=== PATIENT | male | born 1965 | race Caucasian/White ===

== ENCOUNTER 2017-03-24 22:42 | Emergency (ER) | payer OTHER ==
--- NOTE | 2017-03-24 23:08 | ERPHSYRPT ---
- History of Present Illness Time Seen by Provider: 03/24/17 23:03 Source: patient, family Exam Limitations: no limitations Physician History: The patient is a 51-year-old male with his mother who is a past medical history of cervical fracture with now left-sided lower extremity weakness. He has to intermittently self catheter. Today he tried to self catheter but was unable to pass a catheter. He has severe suprapubic discomfort and request to be catheterized for relief. Timing/Duration: hour(s) (6) Activites at Onset: none Quality: fullness Onset Location: suprapubic Pain Radiation: none Severity of Pain-Max: severe Severity of Pain-Current: severe Modifying Factors: Improves With: nothing Associated Symptoms: denies symptoms Prior abdominal problems: none Sexual intercourse history: non-contributory Allergies/Adverse Reactions: No Known Drug Allergies Allergy (Unverified 06/12/15 07:53) Home Medications: Tramadol HCl 50 mg [Ultram 50 mg] 2 tab PO Q4H PRN PRN 06/12/15 [History] - Past Medical History Pertinent Past Medical History: Yes Musculoskeletal History: Other (left leg hemiparesis secondary to back/leg injury in the past,uses cane with severe limp) Other Medical History: UNKNOWN AT THIS TIME, PATIENT CONFUSED - Past Surgical History Other Surgical History: UNKNOWN AT THIS TIME, PATIENT CONFUSED - Social History Smoking Status: Current every day smoker Exposure to second hand smoke: Yes Drug Use: methamphetamines Patient Lives Alone: (UNKNOWN) - Review of Systems Constitutional: No Fever, No Chills Eyes: No Symptoms Ears, Nose, & Throat: No Symptoms Respiratory: No Cough, No Dyspnea Cardiac: No Chest Pain, No Edema, No Syncope Abdominal/Gastrointestinal: No Abdominal Pain, No Nausea, No Vomiting, No Diarrhea Genitourinary Symptoms: Urinary Retention Musculoskeletal: No Back Pain, No Neck Pain Skin: No Rash Neurological: No Dizziness, No Focal Weakness, No Sensory Changes Psychological: No Symptoms Endocrine: No Symptoms Hematologic/Lymphatic: No Symptoms Immunological/Allergic: No Symptoms All Other Systems: Reviewed and Negative - Physical Exam General Appearance: moderate distress Eye Exam: PERRL/EOMI Ears, Nose, Throat Exam: pharynx normal, moist mucous membranes Neck Exam: normal inspection, supple Respiratory Exam: normal breath sounds, lungs clear Cardiovascular Exam: regular rate/rhythm, No edema Gastrointestinal/Abdomen Exam: tenderness, distention Rectal Exam: not done Back Exam: normal inspection, No CVA tenderness Extremity Exam: normal inspection, normal range of motion, No pedal edema Neurologic Exam: alert, oriented x 3, cooperative, sensation nml, No motor deficits Skin Exam: normal color, warm, dry, No rash SpO2 Interpretation: normal - Progress Progress: improved Progress Note: 03/24/17 23:06 "An in and out catheter was performed with a 16 [place] coud with excellent results. Counseled pt/family regarding: diagnosis - Departure Time of Disposition: 23:07 Departure Disposition: Home Clinical Impression: Urinary retention Condition: Stable Critical Care Time: No Additional Instructions: You had urinary retention that was temporarily relieved with a 16 [place] coud catheter. You have been given a prescription for 16 [place] coud catheters for home use. Follow-up as needed.
[2017-03-24 23:27] VITALS: BP 102/65; PULSE 84; O2SAT 94
== END 2017-03-24 23:26 | disposition home or self-care (01) ==
LOC: ED 22:42
DX: R33.9 Retention of urine, unspecified (principal)
CPT/HCPCS: 51701; 99282

== ENCOUNTER 2023-10-23 12:50 | Emergency (ER) | payer OTHER ==
[2023-10-23 12:58] VITALS: TEMP 98.5; O2SAT 100
[2023-10-23] MEDS ORDERED: BABY ASPIRIN 81 MG CHEW PO ONE (13:08)
--- NOTE | 2023-10-23 13:08 | ERPHSYRPT ---
- History of Present Illness Time Seen by Provider: 10/23/23 13:08 Historian: patient Exam Limitations: no limitations Patient Subjective Stated Complaint: PT states "I have had chest pain since last night. I broke my neck awhile ago and I walk with a cane and I have left side weakness all the time and it might be acid reflux, I am not sure." Triage Nursing Assessment: Pt presented alert and oriented X 3, skin pwd. Pt ambulates with a cane and a hunched over slow gait. pt able to speak in clear full sentences. Pt resting comfortably on the bed. Physician History: This is a 58-year-old white male patient who began having some chest pain described as burning sharpness that began last evening. He thought it was more of acid reflux. However it persisted. It improved this morning and now, in the emergency department, he has no complaints of chest pain. He is not short of breath. He has had no fever. He denies cough. He has no abdominal pain. He has no nausea vomiting symptoms. Patient did not take any aspirin today. He is not on any anticoagulation therapy. He occasionally uses methamphetamines. P sg does not smoke or chew tobacco. He does not take daily medications. Timing/Duration: yesterday Quality: burning, sharpness Location: substernal, central Chest Pain Radiation: no radiation Severity of Pain-Max: mild (To moderate) Severity of Pain-Current: none Modifying Factors: Improves With: nothing Associated Symptoms: denies symptoms Nitro Today/Relief: no nitro taken today Aspirin Treatment Today: no aspirin today Allergies/Adverse Reactions: bee venom protein (honey bee) Allergy (Severe, Verified 10/23/23 12:58) Swelling Home Medications: No Reportable Medications [No Reported Medications] 10/23/23 [History] Hx Tetanus, Diphtheria Vaccination/Date Given: No Hx Influenza Vaccination/Date Given: No Hx Pneumococcal Vaccination/Date Given: No Immunizations Up to Date: No Travel Risk - International Travel Have you traveled outside of the country in past 3 weeks: No - Coronavirus Screening Are you exhibiting any of the following symptoms?: No Close contact with a COVID-19 positive Pt in past 14-21 Days: No - Vaccine Status Have you recieved a Covid-19 vaccination: No - Review of Systems Constitutional: No Symptoms Eyes: No Symptoms Ears, Nose, & Throat: No Symptoms Respiratory: No Symptoms Cardiac: No Symptoms Abdominal/Gastrointestinal: No Symptoms Genitourinary Symptoms: No Symptoms Musculoskeletal: No Symptoms Skin: No Symptoms Neurological: No Symptoms Psychological: No Symptoms Endocrine: No Symptoms Hematologic/Lymphatic: No Symptoms Immunological/Allergic: No Symptoms All Other Systems: Reviewed and Negative - Past Medical History Pertinent Past Medical History: Yes Neurological History: Other ENT History: Cataracts Cardiac History: No Pertinent History Respiratory History: No Pertinent History Endocrine Medical History: No Pertinent History Musculoskeletal History: Other GI Medical History: GERD History: No Pertinent History Psycho-Social History: No Pertinent History Male Reproductive Disorders: No Pertinent History Other Medical History: broken neck. walks with cane, left side weakness - Past Surgical History Past Surgical History: Yes Other Surgical History: jaw surgery - Social History Smoking Status: Never smoker Exposure to second hand smoke: Yes Drug Use: methamphetamines Patient Lives Alone: Yes - Nursing Vital Signs Nursing Vital Signs: Initial Vital Signs Temperature 98.5 F 10/23/23 12:50 Pulse Rate 98 H 10/23/23 12:50 Respiratory Rate 20 10/23/23 12:50 Blood Pressure 155/94 10/23/23 12:50 O2 Sat by Pulse Oximetry 100 10/23/23 12:50 Pain Scale Pain Intensity 4 - Physical Exam General Appearance: no apparent distress, alert, thin Eye Exam: PERRL/EOMI, eyes nml inspection Ears, Nose, Throat Exam: normal ENT inspection, moist mucous membranes Neck Exam: normal inspection, non-tender, supple, full range of motion Respiratory Exam: normal breath sounds, lungs clear, airway intact, No chest tenderness, No respiratory distress Cardiovascular Exam: regular rate/rhythm, normal heart sounds, normal peripheral pulses Gastrointestinal/Abdomen Exam: soft, normal bowel sounds, No tenderness Rectal Exam: not done Back Exam: normal inspection, normal range of motion, CVA tenderness Extremity Exam: normal inspection, normal range of motion, pelvis stable Neurologic Exam: alert, oriented x 3, cooperative, special events fundraiser II-XII nml as tested, normal mood/affect, nml cerebellar function, nml station & gait, sensation nml Skin Exam: normal color, warm, dry Lymphatic Exam: No adenopathy SpO2 Interpretation: normal SpO2: 100 O2 Delivery: Room Air - Course Nursing assessment & vital signs reviewed: Yes EKG Interpreted by Me: RATE (96), Sinus Rhythm, NORMAL AXIS, NORMAL INTERVALS, NORMAL QRS, NORMAL ST-T, Other (There is no evidence of any acute ischemic bryson ges on today's twelve-lead EKG) Ordered Tests: Active Orders 24 hr Category Date Time Status EKG-ER Only STAT Care 10/23/23 13:08 Completed IV Insertion STAT Care 10/23/23 13:08 Completed CHEST 1 VIEW (PORTABLE) Stat Exams 10/23/23 13:09 Completed CBC W DIFF Stat Lab 10/23/23 13:12 Completed CMP Stat Lab 10/23/23 13:12 Completed D-DIMER QUANTITATIVE Stat Lab 10/23/23 13:12 Completed NT PRO BNPII Stat Lab 10/23/23 13:12 Completed TROPONIN Q4H Lab 10/23/23 13:12 Completed TROPONIN Q4H Lab 10/23/23 17:15 Ordered TROPONIN Q4H Lab 10/23/23 21:15 Ordered Medication Summary Discontinued Medications Generic Name Dose Route Start Last Admin Trade Name Freq PRN Reason Stop Dose Admin Aspirin 324 mg 10/23/23 13:08 10/23/23 13:14 Aspirin 81 Mg Tab.Chew PO 10/23/23 13:09 324 mg STAT ONE Administration Aspirin Confirm 10/23/23 13:14 Aspirin 81 Mg Tab.Chew Administered 10/23/23 13:15 Dose 324 mg .ROUTE .STSkoovy-MED ONE Lab/Rad Data: Laboratory Result Diagrams 10/23/23 13:12 10/23/23 13:12 Laboratory Results 10/23/23 10/23/23 10/23/23 Range/Units 13:12 13:12 13:12 WBC (4.0-10.5) x10^3/uL RBC (4.1-5.6) x10^6/uL Hgb (12.5-18.0) g/dL Hct (42-50) % MCV (78-100) fL MCH (26-32) pg MCHC (32-36) g/dL RDW (11.5-14.0) % Plt Count (150-450) x10^3/uL MPV (7.5-11.0) fL Gran % (36.0-66.0) % Immature Gran % (Auto) (0.00-0.4) % Nucleat RBC Rel Count (0.00-0.1) % Eos # (Auto) (0-0.5) x10^3/uL Immature Gran # (Auto) (0.00-0.03) x10^3u/L Absolute Lymphs (auto) (1.0-4.6) x10^3/uL Absolute Monos (auto) (0.0-1.3) x10^3/uL Absolute Nucleated RBC (0.00-0.01) x10^3u/L Lymphocytes % (24.0-44.0) % Monocytes % (0.0-12.0) % Eosinophils % (0.00-5.0) % Basophils % (0.0-0.4) % Absolute Granulocytes (1.4-6.9) x10^3/uL Basophils # (0-0.4) x10^3/uL D-Dimer 0.33 (0.0-0.50) mg/L Sodium 136 L (137-145) mmol/L Potassium 3.8 (3.5-5.1) mmol/L Chloride 103 (98-107) mmol/L Carbon Dioxide 25 (22-30) mmol/L Anion Gap 12.0 (5-15) MEQ/L BUN 15 (9-20) mg/dL Creatinine 1.07 (0.66-1.25) mg/dL Estimated GFR 80.9 ML/MIN Glucose 110 H (74-106) mg/dL Calcium 8.6 (8.4-10.2) mg/dL Total Bilirubin 0.30 (0.2-1.3) mg/dL AST 19 (17-59) U/L ALT 15 (0-50) U/L Alkaline Phosphatase 108 (38-126) U/L Troponin I < 0.012 (0.000-0.034) ng/mL NT-Pro-B Natriuret Pep 105 (<300) pg/mL Serum Total Protein 6.6 (6.3-8.2) g/dL Albumin 3.8 (3.5-5.0) g/dL 10/23/23 Range/Units 13:12 WBC 6.2 (4.0-10.5) x10^3/uL RBC 4.70 (4.1-5.6) x10^6/uL Hgb 13.7 (12.5-18.0) g/dL Hct 41.5 L (42-50) % MCV 88.3 (78-100) fL MCH 29.1 (26-32) pg MCHC 33.0 (32-36) g/dL RDW 12.5 (11.5-14.0) % Plt Count 233 (150-450) x10^3/uL MPV 9.5 (7.5-11.0) fL Gran % 60.9 (36.0-66.0) % Immature Gran % (Auto) 0.2 (0.00-0.4) % Nucleat RBC Rel Count 0.0 (0.00-0.1) % Eos # (Auto) 0.25 (0-0.5) x10^3/uL Immature Gran # (Auto) 0.01 (0.00-0.03) x10^3u/L Absolute Lymphs (auto) 1.71 (1.0-4.6) x10^3/uL Absolute Monos (auto) 0.43 (0.0-1.3) x10^3/uL Absolute Nucleated RBC 0.00 (0.00-0.01) x10^3u/L Lymphocytes % 27.4 (24.0-44.0) % Monocytes % 6.9 (0.0-12.0) % Eosinophils % 4.0 (0.00-5.0) % Basophils % 0.6 (0.0-0.4) % Absolute Granulocytes 3.80 (1.4-6.9) x10^3/uL Basophils # 0.04 (0-0.4) x10^3/uL D-Dimer (0.0-0.50) mg/L Sodium (137-145) mmol/L Potassium (3.5-5.1) mmol/L Chloride (98-107) mmol/L Carbon Dioxide (22-30) mmol/L Anion Gap (5-15) MEQ/L BUN (9-20) mg/dL Creatinine (0.66-1.25) mg/dL Estimated GFR ML/MIN Glucose (74-106) mg/dL Calcium (8.4-10.2) mg/dL Total Bilirubin (0.2-1.3) mg/dL AST (17-59) U/L ALT (0-50) U/L Alkaline Phosphatase (38-126) U/L Troponin I (0.000-0.034) ng/mL NT-Pro-B Natriuret Pep (<300) pg/mL Serum Total Protein (6.3-8.2) g/dL Albumin (3.5-5.0) g/dL - Progress Progress: improved, re-examined Air Movement: good Progress Note: 10/23/23 14:06 This patient's medical issue is 1 of moderate complexity. The level complex in the workup performed is based on review the patient's past medical history, review of the patient's medication list, reviewed patient's drug allergy list, history present illness and physical findings on examination. Workup includes placement of an intravenous line, provide the patient with 4 baby aspirin, perform a twelve-lead EKG, troponin level, D-dimer level, CBC, CMP. We will also order a chest x-ray. 10/23/23 14:20 Chest x-ray was interpreted by the radiologist and I reviewed the impression. There is no evidence of any acute cardiopulmonary process. 10/23/23 14:20 I reviewed interpreted the patient's laboratory data results. There is no evidence of any acute or emergent findings. 10/23/23 15:11 I have a low suspicion for cardiac issue. His heart score is under 4. He has no chest pain at the time of discharge. Blood Culture(s) Obtained: No Antibiotics given: No Counseled pt/family regarding: lab results, diagnosis, need for follow-up, rad results Medical Desision Making - Diagnostic Testing Diagnostic test were ordered, analyzed, and reviewed by me: Yes Radiological Interpretation: Reviewed by me, Teleradiologist Report - Risk of complications Low Risk: Low risk of morbidity from additional dx testing or treatment - Departure Departure Disposition: Home Clinical Impression: Non-cardiac chest pain Condition: Stable Critical Care Time: No Referrals: LAUREEN MILLER [Primary Care Provider] - Follow up/PCP as directed Additional Instructions: Drink plenty of fluids. Avoid any illicit drugs. Follow-up with your primary care provider today, 10/23/2023 to make arrangements for follow-up appointment next 3 to 5 days including possible referral to boiler mechanic if indicated.
[2023-10-23 13:14] LABS: BASOPHIL % 0.6 % (0.0-0.4); Basophil (Absolute #) 0.04 x10^3/uL (0-0.4); Eosinophil (Absolute #) 0.25 x10^3/uL (0-0.5); Hematocrit 41.5 % (42-50); Hemoglobin 13.7 g/dL (12.5-18.0); IMMATURE GRAN # 0.01 x10^3u/L (0.00-0.03); IMMATURE GRAN % 0.2 % (0.00-0.4); Lymphocyte (Absolute #) 1.71 x10^3/uL (1.0-4.6); Lymphocytes % 27.4 % (24.0-44.0); Mean Cell Volume 88.3 fL (78-100); Mean Corpuscular Hemoglobin 29.1 pg (26-32); Mean Platelet Volume 9.5 fL (7.5-11.0); Monocyte (Absolute #) 0.43 x10^3/uL (0.0-1.3); Monocytes % 6.9 % (0.0-12.0); Neutrophil % 60.9 % (36.0-66.0); Platelet Count 233 x10^3/uL (150-450); Red Cell Distribution Width 12.5 % (11.5-14.0); White Blood Count 6.2 x10^3/uL (4.0-10.5)
[2023-10-23] MEDS ORDERED: BABY ASPIRIN 81 MG CHEW ONE (13:14)
[2023-10-23 13:36] LABS: ALBUMIN 3.8 g/dL (3.5-5.0); BILIRUBIN,TOTAL 0.3 mg/dL (0.2-1.3); Calcium 8.6 mg/dL (8.4-10.2); Creatinine 1 1.07 mg/dL (0.66-1.25); EST GLOMERULAR FILTRATION RATE 80.9 ML/MIN; Potassium 3.8 mmol/L (3.5-5.1); Total Protein 6.6 g/dL (6.3-8.2)
--- NOTE | 2023-10-23 13:37 | XRAY ---
Indication: Chest pain. Comparison: June 11, 2015. Portable chest is now hyperinflated and remains clear. Heart not enlarged. Bony thorax intact with new mild dextroscoliosis. No new/acute cardiopulmonary abnormalities.
[2023-10-23 14:13] VITALS: BP 107/66; PULSE 72; RESP 14
== END 2023-10-23 14:39 | disposition home or self-care (01) ==
LOC: ED 12:50
DX: R07.89 Other chest pain (principal); Z28.310 Unvaccinated for COVID-19
CPT/HCPCS: 36000; 36415; 71045; 80053; 83880; 84484; 85025; 85379; 93005; 99284; A9270-GY